=== PATIENT | male | born 1985 | race Caucasian/White ===

== ENCOUNTER 2020-05-09 04:55 | Emergency (ER) | payer OTHER, SELFPAY ==
[~2020-05-09] VITALS: Ht 182.9 cm; Wt 124.7 kg
[2020-05-09 04:59] VITALS: Ht 182.9 cm; Wt 124.7 kg
[2020-05-09 06:24] VITALS: BP 137/92
== END 2020-05-09 06:24 | disposition home or self-care (01) ==
LOC: ED 04:55
DX: U07.1 COVID-19 (principal); J11.1 Influenza due to unidentified influenza virus with other respiratory manifestations
CPT/HCPCS: U0003